=== PATIENT | male | born 1970 | race Two or more races ===

== ENCOUNTER 2019-08-14 02:26 | Inpatient (IN) | payer OTHER ==
[~2019-08-14] VITALS: Ht 175.3 cm; Wt 84.4 kg
[2019-08-14 02:58] VITALS: BP 135/93
[2019-08-14] MEDS ORDERED: HYDR-1475 PO (03:23)
[2019-08-14] MEDS ORDERED: LURA40 PO (03:23)
[2019-08-14] MEDS ORDERED: ACET-784 PO (03:23)
[2019-08-14] MEDS ORDERED: CLIN300C3 PO (03:23)
[2019-08-14] MEDS ORDERED: LISI-618 PO (03:24)
[2019-08-14] MEDS ORDERED: INFLUENZA VIRUS VACCINE QVS 2019-20 (3YR+)/PF 60 MCG/0.5 ML SYRINGE IM ONE (04:15)
[2019-08-14 06:49] LABS: BASOPHILS % (AUTO) 0.6 % (0.0-2.0); EOSINOPHILS % (AUTO) 4.2 % (1.0-6.0); HEMATOCRIT 39.6 % (41-53); HEMOGLOBIN 14.3 g/dL (13.5-17.5); LYMPHOCYTES # (AUTO) 2.2 K/uL (1.0-4.8); LYMPHOCYTES % (AUTO) 23.8 % (22.0-44.0); MEAN CORPUSCULAR HEMOGLOBIN 30.1 pg (26.0-34.0); MEAN CORPUSCULAR HGB CONC 36.3 G/dL (31.0-37.0); MEAN CORPUSCULAR VOLUME 83 fL (80-100); MONOCYTES # (AUTO) 0.7 K/uL (0.1-1.0); MONOCYTES % (AUTO) 7.9 % (2.0-9.0); NEUTROPHILS % (AUTO) 63.5 % (40.0-70.0); PLATELET COUNT (AUTO) 337 K/uL (150-450); RED BLOOD CELL COUNT(AUTO) 4.76 MIL/uL (4.50-5.90); RED CELL DISTRIBUTION WIDTH 13.2 % (11.5-14.5)
[2019-08-14 07:23] LABS: ANION GAP 9 mmol/L (8-16); CALCIUM, TOTAL 9.3 mg/dL (8.8-10.5); CARBON DIOXIDE 29 mmol/L (22-29); CHLORIDE 101 mmol/L (98-107); CREATININE 1.25 mg/dL (0.60-1.30); GLOMERULAR FILTR. RATE CALC > 60 mL/min (>60); GLUCOSE,RANDOM 101 mg/dL (70-110); POTASSIUM 4.2 mmol/L (3.5-5.1); SODIUM SERUM 139 mmol/L (136-145); UREA NITROGEN, BLOOD 15 mg/dL (7-18)
[2019-08-14 08:21] VITALS: BP 132/90
[2019-08-14] MEDS ORDERED: MAGNESIUM HYDROXIDE SUSPENSION 30 ML UDCUP PO PRN (08:30)
[2019-08-14] MEDS ORDERED: ACETAMINOPHEN 325 MG TABLET PO PRN (08:30)
[2019-08-14] MEDS ORDERED: SODIUM CHLORIDE 0.9% 500 ML IV ONE (09:49)
[2019-08-14] MEDS: FAMOTIDINE 20 MG TABLET PO SCH (10:00)
[2019-08-14] MEDS: DOCUSATE SODIUM 100 MG CAPSULE PO SCH ×2 (10:00→20:04)
[2019-08-14] MEDS: CefTRIAXone 1 GM/DEXTROSE 50 ML IV SCH (10:02)
[2019-08-14] MEDS: OxyCODONE HCL/ACETAMINOPHEN 5-325 MG TABLET PO PRN (13:33)
[2019-08-14 15:10] VITALS: BP 130/80
[2019-08-14 20:00] VITALS: BP 131/72
[2019-08-14] MEDS: MORPHINE SULFATE 2 MG/ML SYRINGE IVP PRN (20:04)
[2019-08-15 04:40] VITALS: BP 130/77
[2019-08-15 07:10] VITALS: BP 137/89
[2019-08-15] MEDS: DOCUSATE SODIUM 100 MG CAPSULE PO SCH ×2 (08:21→21:00)
[2019-08-15] MEDS: FAMOTIDINE 20 MG TABLET PO SCH (08:21)
[2019-08-15 09:16] VITALS: BP 129/76
[2019-08-15] MEDS: MORPHINE SULFATE 2 MG/ML SYRINGE IVP PRN ×2 (09:16→18:30)
[2019-08-15] MEDS: CefTRIAXone 1 GM/DEXTROSE 50 ML IV SCH (09:16)
[2019-08-15] MEDS: MULTIVITAMINS WITH MINERALS, THERAPEUTIC TABLET PO SCH (10:33)
[2019-08-15] MEDS: NEOMYCIN/BACITRACIN/POLYMYXIN B 30 GM OINTMENT TP SCH ×2 (14:54→21:00)
[2019-08-15] MEDS: OxyCODONE HCL/ACETAMINOPHEN 5-325 MG TABLET PO PRN ×2 (16:24→21:00)
[2019-08-15 16:26] VITALS: BP 150/86
[2019-08-15 17:23] VITALS: BP 138/61
[2019-08-15 20:16] VITALS: BP 133/78
[2019-08-16 04:25] VITALS: BP 122/59
[2019-08-16 08:20] VITALS: BP 147/90
[2019-08-16] MEDS ORDERED: BACTDSB PO (08:22)
[2019-08-16] MEDS ORDERED: NEOM28.38 TP (08:26)
[2019-08-16] MEDS: CefTRIAXone 1 GM/DEXTROSE 50 ML IV SCH (08:27)
[2019-08-16] MEDS: DOCUSATE SODIUM 100 MG CAPSULE PO SCH (08:28)
[2019-08-16] MEDS: FAMOTIDINE 20 MG TABLET PO SCH (08:28)
[2019-08-16] MEDS: MULTIVITAMINS WITH MINERALS, THERAPEUTIC TABLET PO SCH (08:28)
[2019-08-16] MEDS: OxyCODONE HCL/ACETAMINOPHEN 5-325 MG TABLET PO PRN (14:22)
[2019-08-16] MEDS: NEOMYCIN/BACITRACIN/POLYMYXIN B 30 GM OINTMENT TP SCH (14:23)
[2019-08-16] MEDS: MORPHINE SULFATE 2 MG/ML SYRINGE IVP PRN (15:19)
[2019-08-16 15:38] VITALS: BP 136/86
== END 2019-08-16 20:45 | DRG 730 ==
LOC: 6S 02:30
PROVIDERS: ADMIT Internal Medicine; ATTEND Internal Medicine
DX: S31.20XA Unspecified open wound of penis, initial encounter (principal); F29 Unspecified psychosis not due to a substance or known physiological condition; X58.XXXA Exposure to other specified factors, initial encounter; Y93.89 Activity, other specified; Y92.89 Other specified places as the place of occurrence of the external cause; Y99.8 Other external cause status
CPT/HCPCS: J0696; J2270; J7040

== ENCOUNTER 2020-09-08 16:45 | Inpatient (IN) | payer OTHER ==
[~2020-09-08] VITALS: Ht 175.3 cm; Wt 79.5 kg
[~2020-09-08 16:45] MED LIST: ACET-784 PO; BACTDSB PO; LURA40TA2 PO; NEOM28.38 TP
[2020-09-08] MEDS ORDERED: NITROGLYCERIN 0.4 MG SUBLINGUAL TABLET #25 SL ONE (17:30)
[2020-09-08] MEDS ORDERED: NITROGLYCERIN 2% (1 GM=INCH) PACKET TP ONE (17:30)
[2020-09-08] MEDS ORDERED: PANT-31 PO (17:33)
[2020-09-08] MEDS ORDERED: AMLO-258 PO (17:33)
[2020-09-08] MEDS ORDERED: RISP1SOL11 PO (17:33)
[2020-09-08] MEDS ORDERED: [UNRECOGNIZED DRUG - CODE] IM (17:33)
[2020-09-08] MEDS ORDERED: LISI-893 PO (17:33)
[2020-09-08 18:39] LABS: BASOPHILS % (AUTO) 0.8 % (0.0-2.0); EOSINOPHILS % (AUTO) 4.2 % (1.0-6.0); HEMATOCRIT 41.2 % (41-53); HEMOGLOBIN 14.3 g/dL (13.5-17.5); LYMPHOCYTES # (AUTO) 2.1 K/uL (1.0-4.8); LYMPHOCYTES % (AUTO) 30.6 % (22.0-44.0); MEAN CORPUSCULAR HEMOGLOBIN 29.5 pg (26.0-34.0); MEAN CORPUSCULAR HGB CONC 34.7 G/dL (31.0-37.0); MEAN CORPUSCULAR VOLUME 85 fL (80-100); MONOCYTES # (AUTO) 0.5 K/uL (0.1-1.0); MONOCYTES % (AUTO) 7.6 % (2.0-9.0); NEUTROPHILS # (AUTO) 3.9 K/uL (1.8-7.7); NEUTROPHILS % (AUTO) 56.8 % (40.0-70.0); PLATELET COUNT (AUTO) 306 K/uL (150-450); RED BLOOD CELL COUNT(AUTO) 4.85 MIL/uL (4.50-5.90); RED CELL DISTRIBUTION WIDTH 13.4 % (11.5-14.5)
[2020-09-08 18:52] LABS: PROTHROMBIN TIME 10.6 SEC (9.4-11.6)
[2020-09-08] MEDS ORDERED: MAGNESIUM HYDROXIDE SUSPENSION 30 ML UDCUP PO PRN (19:00)
[2020-09-08 19:02] LABS: ALANINE AMINOTRANSFERASE 35 U/L (12-78); ALBUMIN 3.7 g/dL (3.4-5.0); ALKALINE PHOSPHATASE 58 U/L (46-116); ASPARTATE AMINOTRANSFERASE 27 U/L (15-37); BILIRUBIN,TOTAL 0.3 mg/dL (0.1-1.0); CALCIUM, TOTAL 9.5 mg/dL (8.8-10.5); CARBON DIOXIDE 29 mmol/L (22-29); CREATININE 0.94 mg/dL (0.60-1.30); GLOMERULAR FILTR. RATE CALC > 60 mL/min (>60); GLUCOSE,RANDOM 115 mg/dL (70-110); LIPASE 87 U/L (73-393); TOTAL PROTEIN, SERUM 7.9 g/dL (6.4-8.2); UREA NITROGEN, BLOOD 17 mg/dL (7-18)
[2020-09-08 19:08] LABS: COVID AG,FIA SOURCE NASOPHARYNGEAL
[2020-09-08 19:12] LABS: ANION GAP 10 mmol/L (8-16); CHLORIDE 104 mmol/L (98-107); POTASSIUM 4.1 mmol/L (3.5-5.1); SODIUM SERUM 143 mmol/L (136-145)
[2020-09-08] MEDS: DOCUSATE SODIUM 100 MG CAPSULE PO SCH (21:03)
[2020-09-08] MEDS: FAMOTIDINE 20 MG TABLET PO SCH (21:03)
[2020-09-08 21:48] VITALS: BP 142/77
[2020-09-09 04:17] VITALS: BP 122/77
[2020-09-09] MEDS: ACETAMINOPHEN 325 MG TABLET PO PRN (04:19)
[2020-09-09 07:50] VITALS: BP 117/69
[2020-09-09] MEDS: DOCUSATE SODIUM 100 MG CAPSULE PO SCH ×2 (10:34→21:00)
[2020-09-09] MEDS: FAMOTIDINE 20 MG TABLET PO SCH ×2 (10:34→20:34)
[2020-09-09] MEDS: FLUoxetine HCL 20 MG CAPSULE PO SCH (12:37)
[2020-09-09] MEDS ORDERED: PEG 3350/NA SULF,BICARB,CL/KCL 4000 ML SOLUTION PO ONE (16:00)
[2020-09-09 19:22] VITALS: BP 133/87
[2020-09-09] MEDS: OLANZapine 5 MG TABLET PO SCH (20:34)
[2020-09-09] MEDS: MORPHINE SULFATE 2 MG/ML SYRINGE IVP PRN (21:01)
[2020-09-10 04:40] VITALS: BP 137/79
[2020-09-10] MEDS: MORPHINE SULFATE 2 MG/ML SYRINGE IVP PRN ×4 (05:16→20:07)
[2020-09-10 07:40] VITALS: BP 112/61
[2020-09-10] MEDS: FLUoxetine HCL 20 MG CAPSULE PO SCH (08:20)
[2020-09-10] MEDS: FAMOTIDINE 20 MG TABLET PO SCH ×2 (08:20→20:02)
[2020-09-10] MEDS: DOCUSATE SODIUM 100 MG CAPSULE PO SCH ×2 (08:20→20:02)
[2020-09-10] MEDS: ACETAMINOPHEN 325 MG TABLET PO PRN (15:05)
[2020-09-10 19:47] VITALS: BP 128/67
[2020-09-10] MEDS: OLANZapine 5 MG TABLET PO SCH (20:02)
[2020-09-11 04:50] VITALS: BP 114/66
[2020-09-11 08:20] VITALS: BP 130/72
[2020-09-11] MEDS: FLUoxetine HCL 20 MG CAPSULE PO SCH (08:23)
[2020-09-11] MEDS: DOCUSATE SODIUM 100 MG CAPSULE PO SCH ×2 (08:23→22:12)
[2020-09-11] MEDS: MORPHINE SULFATE 2 MG/ML SYRINGE IVP PRN (08:23)
[2020-09-11] MEDS: FAMOTIDINE 20 MG TABLET PO SCH ×2 (08:23→22:13)
[2020-09-11 20:55] VITALS: BP 126/70
[2020-09-11] MEDS: ACETAMINOPHEN 325 MG TABLET PO PRN (22:13)
[2020-09-11] MEDS: OLANZapine 5 MG TABLET PO SCH (22:13)
[2020-09-12 03:15] VITALS: BP 144/62
[2020-09-12] MEDS: DOCUSATE SODIUM 100 MG CAPSULE PO SCH (08:47)
[2020-09-12] MEDS: FLUoxetine HCL 20 MG CAPSULE PO SCH (08:47)
[2020-09-12] MEDS: OLANZapine 5 MG TABLET PO SCH (08:47)
[2020-09-12] MEDS: FAMOTIDINE 20 MG TABLET PO SCH (08:47)
[2020-09-12] MEDS: ACETAMINOPHEN 325 MG TABLET PO PRN (08:51)
[2020-09-12 09:05] VITALS: BP 121/72
[2020-09-12] MEDS ORDERED: DOCU-275 PO (10:24)
[2020-09-12] MEDS ORDERED: OLAN5TAB2 PO (10:25)
[2020-09-12] MEDS ORDERED: FAMO20 PO (10:25)
[2020-09-12] MEDS ORDERED: FLUO-191 PO (10:25)
[2020-09-12] MEDS ORDERED: MOM30 PO (10:26)
== END 2020-09-12 13:35 | DRG 395 ==
LOC: EMS 16:45 → 6N 19:00 → UNDOADMIN 19:00 → 6S 19:00
PROVIDERS: ADMIT Internal Medicine; ATTEND Internal Medicine
DX: T18.8XXA Foreign body in other parts of alimentary tract, initial encounter (principal); F25.1 Schizoaffective disorder, depressive type; X58.XXXA Exposure to other specified factors, initial encounter; Y93.89 Activity, other specified; Y92.89 Other specified places as the place of occurrence of the external cause; Y99.8 Other external cause status; Z91.013 Allergy to seafood; Z20.822 Contact with and (suspected) exposure to COVID-19
CPT/HCPCS: 74019; 74022; 87426; 93005; 99285; J2270

== ENCOUNTER 2020-09-12 15:49 | Inpatient (IN) | payer OTHER ==
[~2020-09-12] VITALS: Ht 175.3 cm; Wt 72.5 kg
[~2020-09-12 15:49] MED LIST changes: +AMLO-258 PO; -BACTDSB PO; +DOCU-275 PO; +FAMO20 PO; +FLUO-191 PO; +LISI-893 PO; -LURA40TA2 PO; +MOM30 PO; -NEOM28.38 TP; +OLAN5TAB2 PO; +PANT-31 PO; +RISP1SOL11 PO; +[UNRECOGNIZED DRUG - CODE] IM
[2020-09-12] MEDS ORDERED: BARIUM SULFATE 0.1% SUSPENSION 450 ML BOTTLE PO ONE (17:00)
[2020-09-12 17:17] LABS: BASOPHILS % (AUTO) 0.6 % (0.0-2.0); HEMATOCRIT 40.9 % (41-53); HEMOGLOBIN 14.1 g/dL (13.5-17.5); LYMPHOCYTES # (AUTO) 2.1 K/uL (1.0-4.8); LYMPHOCYTES % (AUTO) 26.1 % (22.0-44.0); MEAN CORPUSCULAR HEMOGLOBIN 29.3 pg (26.0-34.0); MEAN CORPUSCULAR HGB CONC 34.4 G/dL (31.0-37.0); MEAN CORPUSCULAR VOLUME 85 fL (80-100); MONOCYTES # (AUTO) 0.4 K/uL (0.1-1.0); MONOCYTES % (AUTO) 5.4 % (2.0-9.0); NEUTROPHILS # (AUTO) 5.1 K/uL (1.8-7.7); NEUTROPHILS % (AUTO) 63.9 % (40.0-70.0); PLATELET COUNT (AUTO) 318 K/uL (150-450); RED CELL DISTRIBUTION WIDTH 13.5 % (11.5-14.5)
[2020-09-12 17:33] LABS: ANION GAP 10 mmol/L (8-16); CALCIUM, TOTAL 9.3 mg/dL (8.8-10.5); CARBON DIOXIDE 29 mmol/L (22-29); CHLORIDE 100 mmol/L (98-107); CREATININE 0.94 mg/dL (0.60-1.30); GLOMERULAR FILTR. RATE CALC > 60 mL/min (>60); GLUCOSE,RANDOM 109 mg/dL (70-110); POTASSIUM 4.4 mmol/L (3.5-5.1); SODIUM SERUM 139 mmol/L (136-145); UREA NITROGEN, BLOOD 17 mg/dL (7-18)
[2020-09-12 17:39] LABS: ALANINE AMINOTRANSFERASE 41 U/L (12-78); ALBUMIN 3.8 g/dL (3.4-5.0); ALKALINE PHOSPHATASE 67 U/L (46-116); ASPARTATE AMINOTRANSFERASE 23 U/L (15-37); BILIRUBIN,TOTAL 0.3 mg/dL (0.1-1.0); TOTAL PROTEIN, SERUM 8.4 g/dL (6.4-8.2)
[2020-09-12] MEDS ORDERED: LORazepam 2 MG/ML VIAL ONE (19:00)
[2020-09-12] MEDS ORDERED: HALOPERIDOL LACTATE 5 MG/ML VIAL ONE (19:01)
[2020-09-12] MEDS ORDERED: HALOPERIDOL LACTATE 5 MG/ML VIAL IM ONE (19:15)
[2020-09-12] MEDS ORDERED: LORazepam 2 MG/ML VIAL IM ONE (19:15)
[2020-09-12] MEDS ORDERED: ONDANSETRON HCL 4 MG/2 ML VIAL IVP PRN (19:30)
[2020-09-12 21:03] LABS: COVID AG,FIA SOURCE NASOPHARYNGEAL
[2020-09-12 22:25] VITALS: BP 122/99
[2020-09-12] MEDS ORDERED: INFLUENZA VIRUS VACCINE QVS 2020-21 (6MO+)/PF 60 MCG/0.5 ML SYRINGE IM ONE (23:45)
[2020-09-13 05:44] VITALS: BP 126/92
[2020-09-13 07:16] VITALS: BP 114/76
[2020-09-13] MEDS: ENOXAPARIN SODIUM 40 MG/0.4 ML PF SYRINGE SQ SCH (08:33)
[2020-09-13] MEDS: RisperiDONE 1 MG TABLET PO SCH ×2 (10:26→20:07)
[2020-09-13] MEDS: ACETAMINOPHEN 325 MG TABLET PO PRN (15:38)
[2020-09-13] MEDS: TraZODone HCL 50 MG TABLET PO PRN (20:07)
[2020-09-13 20:38] VITALS: BP 113/66
[2020-09-14 04:37] VITALS: BP 113/57
[2020-09-14 07:18] VITALS: BP 115/69
[2020-09-14] MEDS: RisperiDONE 1 MG TABLET PO SCH ×2 (08:50→20:48)
[2020-09-14] MEDS: ENOXAPARIN SODIUM 40 MG/0.4 ML PF SYRINGE SQ SCH (08:51)
[2020-09-14] MEDS: ACETAMINOPHEN 325 MG TABLET PO PRN ×2 (13:40→21:16)
[2020-09-14 19:37] VITALS: BP 128/81
[2020-09-14] MEDS: TraZODone HCL 50 MG TABLET PO PRN (20:48)
[2020-09-14] MEDS: HALOPERIDOL 1 MG TABLET PO PRN (21:16)
[2020-09-15] MEDS: HALOPERIDOL 1 MG TABLET PO PRN ×2 (01:10→08:28)
[2020-09-15 04:43] VITALS: BP 102/53
[2020-09-15] MEDS: ENOXAPARIN SODIUM 40 MG/0.4 ML PF SYRINGE SQ SCH (08:28)
[2020-09-15] MEDS: RisperiDONE 1 MG TABLET PO SCH (08:28)
[2020-09-15] MEDS: ACETAMINOPHEN 325 MG TABLET PO PRN ×2 (08:28→21:39)
[2020-09-15 08:34] VITALS: BP 121/58
[2020-09-15] MEDS: RisperiDONE 2 MG TABLET PO SCH ×2 (09:00→20:12)
[2020-09-15 20:45] VITALS: BP 122/93
[2020-09-15] MEDS: TraZODone HCL 50 MG TABLET PO PRN (21:39)
[2020-09-16 04:50] VITALS: BP 115/69
[2020-09-16 07:44] VITALS: BP 133/77
[2020-09-16] MEDS: RisperiDONE 2 MG TABLET PO SCH (08:22)
[2020-09-16] MEDS: ENOXAPARIN SODIUM 40 MG/0.4 ML PF SYRINGE SQ SCH (08:22)
[2020-09-16] MEDS ORDERED: RISP2TAB45 PO (09:29)
== END 2020-09-16 19:11 | DRG 885 ==
LOC: EMS 15:51 → 6S 21:04
PROVIDERS: ADMIT Internal Medicine; ATTEND Internal Medicine
DX: F29 Unspecified psychosis not due to a substance or known physiological condition (principal); I20.9 Angina pectoris, unspecified; Z91.19 Patient's noncompliance with other medical treatment and regimen; Z88.8 Allergy status to other drugs, medicaments and biological substances; X83.8XXA Intentional self-harm by other specified means, initial encounter; F41.9 Anxiety disorder, unspecified; T18.8XXA Foreign body in other parts of alimentary tract, initial encounter; Y93.89 Activity, other specified; Y92.89 Other specified places as the place of occurrence of the external cause; Y99.8 Other external cause status; Z20.822 Contact with and (suspected) exposure to COVID-19
CPT/HCPCS: 71250; 72192; 74018; 74150; 87426; 99285; A9575; G0480; J1630; J1650; J2060; 71045-TC